=== PATIENT | female | born 1975 | race Caucasian/White ===

== ENCOUNTER → 2023-11-25 | Outpatient (CLI) | payer MEDICARE ==
[~2023-11-25] MED LIST: ADAPALENE45 G2; Adipex-P37.5 M1 PO; BACL10 PO; FAMO20 PO; IPRATROPIUM BRO30 ML INH; LIDOCAINE15 GM; MIDO5 PO; Norco 10-325 T1 EACH PO; Ondansetron Odt8 MG MM; PANT40 PO; PROG100 PO; [UNRECOGNIZED DRUG - OTHER] OP
[2023-11-25 20:02] LABS: Follicle Stimulating Hormone 22.1 mIU/ml; Luteinizing Hormone 22.8 mIU/ml; Progesterone 1.67 ng/mL
[2023-11-27 17:44] LABS: ESTRADIOL BY IMMUNOASSAY 135 pg/mL
== END | disposition home or self-care (01) ==
LOC: LAB EV 18:13 → LAB SHORT 18:13
PROVIDERS: Registered Nurse Community Health
DX: N95.1 Menopausal and female climacteric states (principal)
CPT/HCPCS: 82670; 83001; 83002; 84144

== ENCOUNTER 2024-01-18 13:28 | Day surgery (SDC) | payer MEDICARE ==
[~2024-01-18] VITALS: Ht 157.5 cm; Wt 98.2 kg
[~2024-01-18 13:28] MED LIST changes: +Atropine Sulfate 0.1 MG/ML 10ML SYR ONE; +Glycopyrrolate 0.2 MG/ML 1MLVIAL ONE; +Lactated Ringer's 1,000 ML IV ONE; +Lidocaine 2% 5 ML SDV ONE; +Lidocaine HCl/Pf 1% 5 ML VIAL ONE; +Methylene Blue 1% 100 MG/10 ML VIAL ONE; +Ondansetron HCl 2 MG / ML 2ML Vial ONE; +ePHEDrine Sulfate 50 MG/ML 1ML Injection ONE
[2024-01-18] MEDS ORDERED: ACET325UDC (13:49)
[2024-01-18] MEDS ORDERED: MUPIROCIN15 GM (13:49)
[2024-01-18] MEDS ORDERED: Lidocaine HCl 4% 5 ML SDA ONE (14:29)
[2024-01-18] MEDS ORDERED: Lactated Ringer's 1,000 ML IV ONE (14:35)
[2024-01-18] MEDS ORDERED: propofoL 50 ML IV ONE ×2 (14:52→15:23)
--- NOTE | 2024-01-18 15:35 | NUR ---
01/18/24 1535 CINDI GARCIA IV CHARTED IN RIGHT HAND BUT WAS ACTUALLY STARTED IN PREOP BY OLIVIA IN PATIENTS RIGHT AC. HOOKED UP BY RN AT 1435 TO LR TKO.
--- NOTE | 2024-01-18 15:36 | NUR ---
01/18/24 1536 CINDI GARCIA IV WAS STARTED IN PREOP AND HOOKED UP TO LR 1435 IV SITE IS IN RIGHT AC; IT IS PATENT WDL
== END 2024-01-18 16:16 | disposition home or self-care (01) ==
LOC: ORSCSDS 13:28
PROVIDERS: Internal Medicine Gastroenterology
PROC: 0DJ08ZZ Inspection of Upper Intestinal Tract, Via Natural or Artificial Opening Endoscopic (ICD-10-PCS; principal; 2024-01-18 14:45)
PROC: 0DJD8ZZ Inspection of Lower Intestinal Tract, Via Natural or Artificial Opening Endoscopic (ICD-10-PCS; principal; 2024-01-18 14:45)
DX: K22.70 Barrett's esophagus without dysplasia (principal); K44.9 Diaphragmatic hernia without obstruction or gangrene; Z12.11 Encounter for screening for malignant neoplasm of colon; E66.01 Morbid (severe) obesity due to excess calories; Z68.39 Body mass index [BMI] 39.0-39.9, adult; Z79.899 Other long term (current) drug therapy
CPT/HCPCS: 43235; G0121; J0461; J2001; J2405; J2704; J7120; Q9968

== ENCOUNTER 2024-06-06 07:10 | Day surgery (SDC) | payer MEDICARE ==
[~2024-06-06] VITALS: Ht 157.5 cm; Wt 98.2 kg
[~2024-06-06 07:10] MED LIST changes: +ACET325UDC; -Atropine Sulfate 0.1 MG/ML 10ML SYR ONE; -Glycopyrrolate 0.2 MG/ML 1MLVIAL ONE; -Lactated Ringer's 1,000 ML IV ONE; -Lidocaine 2% 5 ML SDV ONE; +Lidocaine HCl 2% 10 ML SDA ONE; -Lidocaine HCl/Pf 1% 5 ML VIAL ONE; +MUPIROCIN15 GM; -Methylene Blue 1% 100 MG/10 ML VIAL ONE; -Ondansetron HCl 2 MG / ML 2ML Vial ONE; -ePHEDrine Sulfate 50 MG/ML 1ML Injection ONE
[2024-06-06] MEDS ORDERED: Norco 10-325 T1 EACH PO (08:04)
[2024-06-06] MEDS ORDERED: Lactated Ringer's 1,000 ML IV ONE ×3 (08:04→09:07)
[2024-06-06] MEDS ORDERED: CeFAZolin Sodium 2,000 MG VIAL ONE (08:08)
[2024-06-06] MEDS ORDERED: propofoL 20 ML IV ONE (08:18)
[2024-06-06] MEDS ORDERED: FentaNYL Citrate 50 MCG/ML 2 ML Injection ONE (08:19)
[2024-06-06] MEDS ORDERED: Midazolam HCl 1MG / ML 2ML Vial ONE (08:19)
[2024-06-06] MEDS ORDERED: Ketorolac Tromethamine 30mg Vial ONE ×2 (08:20→08:33)
[2024-06-06] MEDS ORDERED: Ondansetron HCl 2 MG / ML 2ML Vial ONE (08:34)
[2024-06-06] MEDS ORDERED: Dexamethasone Sod Phos 10 MG/ML 1ML VIAL ONE (08:34)
== END 2024-06-06 09:15 | disposition home or self-care (01) ==
LOC: ORSCSDS 07:10
PROVIDERS: Orthopaedic Surgery
PROC: 0JCK0ZZ Extirpation of Matter from Left Hand Subcutaneous Tissue and Fascia, Open Approach (ICD-10-PCS; principal; 2024-06-06 08:30)
PROC: 0JBK0ZX Excision of Left Hand Subcutaneous Tissue and Fascia, Open Approach, Diagnostic (ICD-10-PCS; principal; 2024-06-06 08:30)
DX: L02.512 Cutaneous abscess of left hand (principal); M79.642 Pain in left hand; M79.5 Residual foreign body in soft tissue; E66.01 Morbid (severe) obesity due to excess calories; Z68.41 Body mass index [BMI] 40.0-44.9, adult; Z79.899 Other long term (current) drug therapy
CPT/HCPCS: 88300; 88305; J0690; J1100; J1885; J2003; J2250; J2405; J2704; J3010; J7120

== ENCOUNTER 2024-06-14 21:42 | Emergency (ER) | payer MEDICARE, OTHER ==
[~2024-06-14] VITALS: Ht 157.5 cm; Wt 97.1 kg
[~2024-06-14 21:42] MED LIST changes: -Lidocaine HCl 2% 10 ML SDA ONE
[2024-06-14 22:03] LABS: BASOPHILS ABSOLUTE AUTO 0.05 K/mm3 (0.00-0.23); BASOPHILS PERCENT AUTO 1 % (0-2); EOSINOPHILS ABSOLUTE AUTO 0.11 K/mm3 (0.00-0.68); EOSINOPHILS PERCENT AUTO 1 % (0-6); Hematocrit 41.7 % (33.0-51.0); IMMATURE GRAN ABSOLUTE AUTO 0.03 K/mm3 (0.00-0.10); IMMATURE GRAN PERCENT AUTO 0 % (0-1); LYMPHOCYTES ABSOLUTE AUTO 4.41 K/mm3 (0.84-5.20); LYMPHOCYTES PERCENT AUTO 42 % (21-46); MONOCYTES ABSOLUTE AUTO 0.79 K/mm3 (0.16-1.47); MONOCYTES PERCENT AUTO 8 % (4-13); Mean Corpuscular HGB 31.1 pg (26.0-34.0); Mean Corpuscular HGB Conc 33.6 g/dL (31.5-36.5); Mean Corpuscular Volume 93 fL (80-100); NEUTROPHILS ABSOLUTE AUTO 5.21 K/mm3 (1.96-9.15); NEUTROPHILS PERCENT AUTO 49 % (41-73); Platelet Count 369 K/mm3 (150-400); RDW Coefficient Variation 12.3 % (11.7-14.2)
[2024-06-14 22:25] LABS: Albumin, Blood 3.9 g/dL (3.4-5.0); Albumin/Globulin Ratio 1.1 (0.8-1.8); Bilirubin, Total 0.4 mg/dL (0.1-1.0); Bun/Creatinine Ratio 22.1 (12.0-20.0); Calcium, Blood 9.5 mg/dL (8.5-10.1); Creatinine, Blood 0.72 mg/dL (0.40-1.00); Globulin, Blood 3.6 g/dL (2.2-4.0); Potassium, Blood 3.7 mmol/L (3.5-5.5); Total Protein, Blood 7.5 g/dL (6.4-8.2)
[2024-06-15] MEDS ORDERED: Mag Hydrox/AL Hydrox/Simeth 30 ML UDC PO ONE (03:10)
[2024-06-15] MEDS ORDERED: Lidocaine 2% Viscous Soln 15 ML UDC PO ONE (03:15)
[2024-06-15] MEDS ORDERED: ALMACONE SUSPE355 ML PO (03:55)
== END 2024-06-15 04:10 | disposition home or self-care (01) ==
LOC: ER 21:42
PROVIDERS: Emergency Medicine
DX: K21.9 Gastro-esophageal reflux disease without esophagitis (principal); Z88.1 Allergy status to other antibiotic agents; Z88.8 Allergy status to other drugs, medicaments and biological substances; Z91.040 Latex allergy status; Z79.899 Other long term (current) drug therapy
CPT/HCPCS: 71046; 80053; 84484; 85025; 85379; 99285-25; A9270